=== PATIENT | male | born 1995 | race Asian ===

== ENCOUNTER 2020-07-20 00:10 | Emergency (ER) | payer SELFPAY ==
[~2020-07-20] VITALS: Ht 188 cm; Wt 104.5 kg
[2020-07-20] MEDS ORDERED: KETOROLAC TROMETHAMINE 30 MG/ML VIAL IM ONE (00:45)
[2020-07-20] MEDS ORDERED: SODIUM CHLORIDE 0.9% 1,000 ML IV ONE (01:45)
[2020-07-20] MEDS ORDERED: KETAMINE HCL 50 MG/ML 10 ML VIAL IVP ONE (01:45)
[2020-07-20 02:52] VITALS: BP 192/88
[2020-07-20] MEDS ORDERED: HYDROCODONE/ACETAMINOPHEN 5-325 MG TABLET PO ONE (03:15)
[2020-07-20] MEDS ORDERED: HYDROCODONE/ACETAMINOPHEN 5-325 MG TABLET ONE (03:39)
== END 2020-07-20 03:42 | disposition home or self-care (01) ==
LOC: EDBD 00:13 → EMS 00:13
DX: S52.122A Displaced fracture of head of left radius, initial encounter for closed fracture (principal); S52.022A Displaced fracture of olecranon process without intraarticular extension of left ulna, initial encounter for closed fracture; S53.125A Posterior dislocation of left ulnohumeral joint, initial encounter; W19.XXXA Unspecified fall, initial encounter; Y93.89 Activity, other specified; Y92.89 Other specified places as the place of occurrence of the external cause; Y99.8 Other external cause status
CPT/HCPCS: 24600; 29125; 73060; 73080; 73090; 96360; 96372; 99285; J1885; J3490; J7030; 96361

== ENCOUNTER 2020-07-20 19:23 | Emergency (ER) | payer MEDICAID ==
[~2020-07-20] VITALS: Ht 188 cm; Wt 106.8 kg
[2020-07-20 19:54] VITALS: BP 157/101
== END 2020-07-20 20:36 | disposition home or self-care (01) ==
LOC: EMS 19:23
DX: S53.125D Posterior dislocation of left ulnohumeral joint, subsequent encounter (principal); X58.XXXD Exposure to other specified factors, subsequent encounter
CPT/HCPCS: 29105; 99283